=== PATIENT | female | born 1945 | race Caucasian/White ===

== ENCOUNTER → 2016-12-31 | Outpatient (REF) | payer MEDICARE, BC | LOC: M SFHCWAGY 15:37 | PROVIDERS: ATTEND Nurse Practitioner Family | DX: B02.9 Zoster without complications (principal) | CPT/HCPCS: 87254; G0463 ==

== ENCOUNTER → 2017-04-14 | Outpatient (CLI) | payer MEDICARE, BC ==
--- NOTE | 2017-04-14 11:47 | REPMRS ---
Patient History The patient states she had a clinical breast exam in 04/2017. Patient is postmenopausal. Family history of endometrial cancer in mother. Took unspecified hormones for 5 years. Digital Woman Screen Mammo: April 14, 2017 - Exam #: [id number] Bilateral CC and MLO view(s) were taken. Technologist: Karime Macario, Technologist Prior study comparison: April 15, 2016, digital woman screen mammo performed at [facility]. April 13, 2015, digital woman screen mammo performed at [facility]. FINDINGS: There are scattered fibroglandular densities. There has been no change in the appearance of the mammogram from the prior studies. There is a mild amount of residual fibroglandular tissue which is fairly symmetric. There is no interval development of dominant mass, architectural distortion, or clustered microcalcification suggestive of malignancy. ASSESSMENT: BI-RADS/ACR category 1 mammogram. Negative. Recommendation Routine screening mammogram in 1 year (for women over age 40). This mammogram was interpreted with the aid of an FDA-approved computer-aided dectection system. Electronically Signed By: Fausto Sutton MD 04/14/17 [id number]
== END ==
LOC: M WHC 10:05
PROVIDERS: ATTEND Nurse Practitioner Family
DX: Z12.31 Encounter for screening mammogram for malignant neoplasm of breast (principal); Z78.0 Asymptomatic menopausal state
CPT/HCPCS: G0202; G0463

== ENCOUNTER → 2018-06-17 | Outpatient (CLI) | payer MEDICARE, BC | LOC: M WHC 10:58 | DX: Z01.419 Encounter for gynecological examination (general) (routine) without abnormal findings (principal); Z12.31 Encounter for screening mammogram for malignant neoplasm of breast (principal); Z92.29 Personal history of other drug therapy; Z12.12 Encounter for screening for malignant neoplasm of rectum | CPT/HCPCS: 77067 ==

== ENCOUNTER → 2019-06-17 | Outpatient (CLI) | payer MEDICARE, BC ==
--- NOTE | 2019-06-17 13:19 | REPMRS ---
Patient History The patient states she had a clinical breast exam in 06/2019. Family history of endometrial cancer in mother. Took unspecified hormones for 5 years. 3D TOMOSYNTHESIS WAS PERFORMED. [facility] for [facility] 1.9%. Digital Woman Screen Mammo: June 17, 2019 - Exam #: [id number] Bilateral CC and MLO view(s) were taken. Technologist: Soila Cody, Technologist Prior study comparison: June 17, 2018, bilateral digital woman screen mammo performed at [facility]. April 14, 2017, digital woman screen mammo performed at [facility]. FINDINGS: There are scattered fibroglandular densities. There has been no change in the appearance of the mammogram from the prior studies. There is a mild amount of residual fibroglandular tissue which is fairly symmetric. There is no interval development of dominant mass, architectural distortion, or clustered microcalcification suggestive of malignancy. Assessment: BI-RADS/ACR category 1 mammogram. Negative Mammogram. Recommendation Routine screening mammogram in 1 year (for women over age 40). This mammogram was interpreted with the aid of an FDA-approved computer-aided dectection system. Electronically Signed By: Fausto Sutton MD 06/17/19 [id number]
== END ==
LOC: M WHC 10:15
PROVIDERS: ATTEND Nurse Practitioner Family
DX: Z01.419 Encounter for gynecological examination (general) (routine) without abnormal findings (principal); Z12.31 Encounter for screening mammogram for malignant neoplasm of breast; Z80.49 Family history of malignant neoplasm of other genital organs; Z92.29 Personal history of other drug therapy; Z12.12 Encounter for screening for malignant neoplasm of rectum
CPT/HCPCS: 77063; 77067; 82270; G0101

== ENCOUNTER → 2020-06-19 | Outpatient (CLI) | payer MEDICARE, BC ==
--- NOTE | 2020-06-19 14:57 | REPMRS ---
Patient History The patient states she had a clinical breast exam in June 2020. Family history of endometrial cancer in mother. Took unspecified hormones for 5 years. Digital Woman Screen Mammo: June 19, 2020 - Exam #: [id number] Bilateral CC and MLO view(s) were taken. Technologist: Faith Loomis, Technologist Prior study comparison: June 17, 2019, bilateral digital woman screen mammo performed at [facility]. June 17, 2018, bilateral digital woman screen mammo performed at [facility]. April 14, 2017, digital woman screen mammo performed at [facility]. FINDINGS: The breast tissue is almost entirely fat. The Volpara volumetric breast density category is: A. There has been no change in the appearance of the mammogram from the prior studies. There is no interval development of dominant mass, architectural distortion, or grouped microcalcification typical of malignancy. 3-D tomosynthesis shows no additional findings. Assessment: BI-RADS/ACR category 1 mammogram. Negative Mammogram. Recommendation Routine screening mammogram of both breasts in 1 year (for women over age 40). This patient's Lifetime Breast Cancer RIsk is estimated at 1.8 %. This mammogram was interpreted with the aid of an FDA-approved computer-aided dectection system. Electronically Signed By: Jean-Paul Jack MD 06/19/20 [id number]
== END ==
LOC: M WHC 10:20
PROVIDERS: ATTEND Nurse Practitioner Family
DX: Z12.31 Encounter for screening mammogram for malignant neoplasm of breast (principal); Z80.49 Family history of malignant neoplasm of other genital organs; Z92.29 Personal history of other drug therapy

== ENCOUNTER → 2020-12-22 | Outpatient (CLI) | payer MEDICARE, BC ==
--- NOTE | 2020-12-25 08:10 | REP ---
INDICATION: R10-.9 RUQ ABD PAIN. COMPARISON: None. TECHNIQUE/RADIOTRACER AND DOSE: 6.6 mCi of Technetium-99m mebrofenin was injected and sequential anterior images are acquired. 65 minutes after the mebrofenin injection, the patient consumed 8 ounces Ensure and an additional 60 minutes of imaging was acquired. Regions of interest are plotted around the gallbladder. FINDINGS: The initial hepatocellular parenchymal uptake phase is normal and homogeneous. Intra- and extra-hepatic bile ducts are labeled by the 10-minute image. The gallbladder is first labeled on the 25-minute image. There is normal washout from the liver parenchyma into the gallbladder and small intestine on subsequent images. The gallbladder ejection fraction is 89%. Values greater than 35% are considered normal with this technique. IMPRESSION: Normal hepatobiliary scan and normal gallbladder ejection fraction. <Electronically signed by Jean-Paul Jack > 12/25/20 0835
== END ==
LOC: M RAD 12:11
DX: R10.9 Unspecified abdominal pain (principal)
CPT/HCPCS: 78227; A9537

== ENCOUNTER → 2021-06-21 | Outpatient (CLI) | payer MEDICARE, BC ==
--- NOTE | 2021-06-21 12:37 | REPMRS ---
Patient History The patient states she had a clinical breast exam in 2020. Family history of endometrial cancer in mother. Took unspecified hormones for 5 years. Tomosynthesis is performed. Volpara breast density is a. [facility] lifetime risk of breast cancer 1.6%. No breast complaints today Patient signed the MRS sheet 1st vaccine 10/02/20-Pfizer 2nd vaccine 10/23/20-patient doesn't remember which arm for either 3rd vaccine 06/16/21-left arm [employer] on PACS Patient Identification Verified Digital Woman Screen Mammo: June 21, 2021 - Exam #: [id number] Bilateral CC and MLO view(s) were taken. Technologist: Stacey Miller, Technologist Prior study comparison: June 19, 2020, bilateral digital woman screen mammo performed at [facility]. June 17, 2019, bilateral digital woman screen mammo performed at [facility]. FINDINGS: There are scattered fibroglandular densities. There has been no change in the appearance of the mammogram from the prior studies. There is a mild amount of residual fibroglandular tissue which is fairly symmetric. There is no interval development of dominant mass, architectural distortion, or clustered microcalcification suggestive of malignancy. Assessment: BI-RADS/ACR category 1 mammogram. Negative Mammogram. Recommendation Routine screening mammogram in 1 year (for women over age 40). This mammogram was interpreted with the aid of an FDA-approved computer-aided dectection system. Electronically Signed By: Fausto Sutton MD 06/21/21 [id number]
== END ==
LOC: M WHC 09:52
PROVIDERS: ATTEND Nurse Practitioner Women's Health
DX: Z01.419 Encounter for gynecological examination (general) (routine) without abnormal findings (principal); Z12.31 Encounter for screening mammogram for malignant neoplasm of breast; Z80.49 Family history of malignant neoplasm of other genital organs; L29.2 Pruritus vulvae
CPT/HCPCS: 77063; 77067; G0101

== ENCOUNTER → 2021-07-25 | Outpatient (REF) | payer MEDICARE, BC | LOC: M LAB REF 14:20 | PROVIDERS: ATTEND Physician Assistant | DX: L85.9 Epidermal thickening, unspecified (principal) | CPT/HCPCS: 11102; 88305; G0463 ==

== ENCOUNTER → 2021-10-26 | Outpatient (CLI) | payer MEDICARE, BC | LOC: M PLAIMG 11:25 | PROVIDERS: ATTEND Internal Medicine Rheumatology | DX: M25.50 Pain in unspecified joint (principal); R76.8 Other specified abnormal immunological findings in serum; M77.31 Calcaneal spur, right foot; M77.32 Calcaneal spur, left foot; Z87.39 Personal history of other diseases of the musculoskeletal system and connective tissue ==

== ENCOUNTER → 2021-10-26 | Outpatient (REF) | payer MEDICARE, BC ==
[2021-10-26 12:13] LABS: BASO # 0.1 10^3/uL (0.0-0.2); EOS # 0.5 10^3/uL (0.0-0.5); EOS % 5.7 % (0.0-3.0); HEMATOCRIT 40.8 % (36.0-47.0); HEMOGLOBIN 13.2 g/dl (12.0-15.5); LYMPH # 2.2 10^3/uL (1.5-5.0); LYMPH % 27.9 % (24.0-44.0); MEAN CORPUSCULAR HEMOGLOBIN 30.3 pg (27.0-33.0); MEAN CORPUSCULAR HGB CONC 32.4 g/dl (32.0-36.5); MEAN CORPUSCULAR VOLUME 93.6 fl (80.0-96.0); MONO # 0.8 10^3/uL (0.0-0.8); MONO % 10.3 % (2.0-8.0); NEUTROPHILS # 4.4 10^3/uL (1.5-8.5); NEUTROPHILS % 54.6 % (36.0-66.0); PLATELET COUNT, AUTOMATED 187 10^3/uL (150-450); RED BLOOD COUNT 4.36 10^6/uL (4.00-5.40)
[2021-10-26 12:32] LABS: ALBUMIN 3.5 GM/DL (3.2-5.2); ALT/SGPT 34 U/L (12-78); BILIRUBIN,TOTAL 0.5 MG/DL (0.2-1.0); BLOOD UREA NITROGEN 13 MG/DL (7-18); CALCIUM LEVEL 9.8 MG/DL (8.8-10.2); CARBON DIOXIDE LEVEL 26 MEQ/L (21-32); CHLORIDE LEVEL 109 MEQ/L (98-107); CREATININE FOR GFR 0.84 MG/DL (0.55-1.30); GLOMERULAR FILTRATION RATE > 60.0 (>39); GLUCOSE, FASTING 79 MG/DL (70-100); POTASSIUM SERUM 4.4 MEQ/L (3.5-5.1); SODIUM LEVEL 142 MEQ/L (136-145); TOTAL PROTEIN 7.2 GM/DL (6.4-8.2)
[2021-10-26 12:46] LABS: ERYTHROCYTE SEDIMENTATION RATE 30 mm/hr (0-30)
[2021-10-26 13:24] LABS: HEPATITIS B SURFACE ANTIGEN NEGATIVE (NEGATIVE)
[2021-10-26 13:53] LABS: HEPATITIS C VIRUS ABY INDEX 0.1 INDEX (<0.8)
== END ==
LOC: M SFHCRHEU 10:40
PROVIDERS: ATTEND Internal Medicine Rheumatology
DX: M25.50 Pain in unspecified joint (principal); R76.8 Other specified abnormal immunological findings in serum; Z87.39 Personal history of other diseases of the musculoskeletal system and connective tissue

== ENCOUNTER → 2022-08-19 | Outpatient (CLI) | payer MEDICARE, BC | LOC: M WHC 08:48 | PROVIDERS: ATTEND Nurse Practitioner Family | DX: Z12.31 Encounter for screening mammogram for malignant neoplasm of breast (principal) ==

== ENCOUNTER → 2022-09-16 | Outpatient (CLI) | payer MEDICARE, BC | LOC: M PLARAD 13:55 | PROVIDERS: ATTEND Internal Medicine Pulmonary Disease | DX: R91.1 Solitary pulmonary nodule (principal) | CPT/HCPCS: 78815; A9552 ==

== ENCOUNTER → 2022-10-17 | Outpatient (CLI) | payer MEDICARE, BC ==
[~2022-10-17] MED LIST: ALBU8.5H INH; CARV3.12 PO; CO-E200C PO; D3 S1CAP PO; HOME MED LIST COMPLETE! XX SCH; KP F1200 PO; LEVO88TA3 PO; LIDOCAINE 1% MDV 20ML VIAL As Ordered ONE; LOSA25TA13 PO; LOSA50TA28 PO; vitamin D3 PO
[2022-10-17 11:45] VITALS: BP 156/78
== END ==
LOC: M IRPRO 08:23
PROVIDERS: ATTEND Internal Medicine Pulmonary Disease
DX: C34.11 Malignant neoplasm of upper lobe, right bronchus or lung (principal)

== ENCOUNTER → 2022-10-31 | Outpatient (CLI) | payer MEDICARE, BC ==
[~2022-10-31] MED LIST changes: -HOME MED LIST COMPLETE! XX SCH; -LIDOCAINE 1% MDV 20ML VIAL As Ordered ONE
== END ==
LOC: M ONCR 12:42
PROVIDERS: ATTEND Specialist
DX: C34.11 Malignant neoplasm of upper lobe, right bronchus or lung (principal); E03.9 Hypothyroidism, unspecified; I10 Essential (primary) hypertension; J43.9 Emphysema, unspecified; K57.90 Diverticulosis of intestine, part unspecified, without perforation or abscess without bleeding; M06.9 Rheumatoid arthritis, unspecified; Z79.52 Long term (current) use of systemic steroids; Z79.890 Hormone replacement therapy; Z79.899 Other long term (current) drug therapy; Z80.49 Family history of malignant neoplasm of other genital organs; Z80.6 Family history of leukemia; Z87.891 Personal history of nicotine dependence; Z88.8 Allergy status to other drugs, medicaments and biological substances; Z90.710 Acquired absence of both cervix and uterus; Z90.79 Acquired absence of other genital organ(s)

== ENCOUNTER 2022-11-29 08:54 | Outpatient (RCR) | payer MEDICARE, BC | END 2022-12-06 | LOC: M ONCR 08:54 | PROVIDERS: ATTEND General Practice | DX: C34.91 Malignant neoplasm of unspecified part of right bronchus or lung (principal) ==

== ENCOUNTER → 2023-03-04 | Outpatient (CLI) | payer MEDICARE, BC | LOC: M ONCR 09:51 | PROVIDERS: ATTEND General Practice | DX: C34.11 Malignant neoplasm of upper lobe, right bronchus or lung (principal); R20.8 Other disturbances of skin sensation; Z71.2 Person consulting for explanation of examination or test findings; Z87.891 Personal history of nicotine dependence; Z79.890 Hormone replacement therapy; Z79.899 Other long term (current) drug therapy; Z88.8 Allergy status to other drugs, medicaments and biological substances; Z92.3 Personal history of irradiation ==

== ENCOUNTER → 2023-08-13 | Outpatient (CLI) | payer MEDICARE, BC | LOC: M ONCR 14:40 | PROVIDERS: ATTEND General Practice | DX: C34.11 Malignant neoplasm of upper lobe, right bronchus or lung (principal); M79.18 Myalgia, other site; J70.1 Chronic and other pulmonary manifestations due to radiation; W88.8XXA Exposure to other ionizing radiation, initial encounter; Z71.2 Person consulting for explanation of examination or test findings; Z79.890 Hormone replacement therapy; Z79.899 Other long term (current) drug therapy; Z87.891 Personal history of nicotine dependence; Z88.8 Allergy status to other drugs, medicaments and biological substances; Z92.3 Personal history of irradiation ==

== ENCOUNTER → 2023-11-18 | Outpatient (CLI) | payer MEDICARE, BC ==
[~2023-11-18] MED LIST changes: +DEXA4TA PO; +DULO1CAP6 PO
== END ==
LOC: M ONCR 10:47
PROVIDERS: ATTEND General Practice
DX: Z08 Encounter for follow-up examination after completed treatment for malignant neoplasm (principal); Z85.118 Personal history of other malignant neoplasm of bronchus and lung; G62.82 Radiation-induced polyneuropathy; W88.8XXA Exposure to other ionizing radiation, initial encounter; R07.82 Intercostal pain; Z71.2 Person consulting for explanation of examination or test findings; Z79.890 Hormone replacement therapy; Z79.899 Other long term (current) drug therapy; Z87.891 Personal history of nicotine dependence; Z88.8 Allergy status to other drugs, medicaments and biological substances; Z92.3 Personal history of irradiation

== ENCOUNTER → 2024-04-02 | Outpatient (CLI) | payer MEDICARE, BC | LOC: M WHC 13:29 | PROVIDERS: ATTEND Physician Assistant Medical | DX: Z12.31 Encounter for screening mammogram for malignant neoplasm of breast (principal) ==

== ENCOUNTER → 2024-05-25 | Outpatient (CLI) | payer MEDICARE, BC | LOC: M ONCR 10:33 | PROVIDERS: ATTEND General Practice | DX: C34.11 Malignant neoplasm of upper lobe, right bronchus or lung (principal); Z79.899 Other long term (current) drug therapy; Z87.891 Personal history of nicotine dependence; Z88.8 Allergy status to other drugs, medicaments and biological substances; Z92.3 Personal history of irradiation ==

== ENCOUNTER 2024-09-27 07:12 | Day surgery (SDC) | payer MEDICARE, BC ==
[~2024-09-27] VITALS: Ht 154.9 cm; Wt 76.7 kg
[~2024-09-27 07:12] MED LIST changes: +CO Q200C10 PO; +ROSU5TAB49 PO; +SYNT75TA PO; +VITA100093 PO
[2024-09-27] MEDS ORDERED: LR 1,000 ML IV SCH (07:55)
[2024-09-27] MEDS ORDERED: fentaNYL 100 MCG/2 ML INJECTION As Ordered ONE (08:48)
[2024-09-27] MEDS ORDERED: MIDAZOLAM INJ 2MG/2ML VIAL As Ordered ONE (08:48)
[2024-09-27] MEDS ORDERED: propofoL 200 MG/20 ML VIAL As Ordered ONE (08:48)
[2024-09-27] MEDS ORDERED: LIDOCAINE 2% 100MG/5ML SDV (FOR ANES.) As Ordered ONE (08:49)
[2024-09-27] MEDS ORDERED: ACETAMINOPHEN 1000MG/100ML IV BAG As Ordered ONE (08:49)
[2024-09-27] MEDS ORDERED: ONDANSETRON 4MG 2ML VIAL As Ordered ONE (08:49)
[2024-09-27] MEDS ORDERED: ePHEDrine SULFATE 25 MG/5 ML(5MG/ML) SYRINGE As Ordered ONE (09:00)
[2024-09-27] MEDS: ceFAZolin SOD 2 GM in IV 1 EA IV ONE (10:30)
[2024-09-27] MEDS: ISOVUE-300 61% 100ML VIAL As Ordered ONE (11:00)
[2024-09-27] MEDS ORDERED: fentaNYL 100 MCG/2 ML INJECTION IV PRN (11:05)
[2024-09-27] MEDS ORDERED: oxyCODONE 5MG TAB PO PRN (11:05)
[2024-09-27] MEDS ORDERED: ONDANSETRON 4MG 2ML VIAL IV PRN (11:05)
[2024-09-27] MEDS ORDERED: MACR100C43 PO (11:12)
[2024-09-27] MEDS ORDERED: PYRI1TAB5 PO (11:12)
[2024-09-27 12:15] VITALS: BP 175/76; TEMP 96.9; O2SAT 98
== END 2024-09-27 12:42 | disposition home or self-care (01) ==
LOC: M SDC 07:12
PROVIDERS: ATTEND Urology
DX: N13.30 Unspecified hydronephrosis (principal); I11.0 Hypertensive heart disease with heart failure; I25.10 Atherosclerotic heart disease of native coronary artery without angina pectoris; I50.9 Heart failure, unspecified; R00.1 Bradycardia, unspecified; I44.7 Left bundle-branch block, unspecified; E03.9 Hypothyroidism, unspecified; E78.00 Pure hypercholesterolemia, unspecified; J44.9 Chronic obstructive pulmonary disease, unspecified; Z79.899 Other long term (current) drug therapy; I25.2 Old myocardial infarction; Z79.890 Hormone replacement therapy; Z85.118 Personal history of other malignant neoplasm of bronchus and lung; Z92.3 Personal history of irradiation; Z87.891 Personal history of nicotine dependence; Z90.710 Acquired absence of both cervix and uterus; Z90.722 Acquired absence of ovaries, bilateral; Z90.49 Acquired absence of other specified parts of digestive tract; Z88.8 Allergy status to other drugs, medicaments and biological substances; Z87.19 Personal history of other diseases of the digestive system
CPT/HCPCS: 52351; 76000; C1769; J0131; J0690; J1100; J2250; J2405; J3010; Q9967

== ENCOUNTER → 2024-11-23 | Outpatient (CLI) | payer MEDICARE, BC ==
[~2024-11-23] MED LIST changes: +MACR100C43 PO; +PYRI1TAB5 PO
== END ==
LOC: M ONCR 10:35
PROVIDERS: ATTEND General Practice
DX: Z08 Encounter for follow-up examination after completed treatment for malignant neoplasm (principal); Z85.118 Personal history of other malignant neoplasm of bronchus and lung; R10.30 Lower abdominal pain, unspecified; N13.30 Unspecified hydronephrosis; Z92.23 Personal history of estrogen therapy; Z87.891 Personal history of nicotine dependence; Z88.8 Allergy status to other drugs, medicaments and biological substances; Z79.890 Hormone replacement therapy; Z79.899 Other long term (current) drug therapy

== ENCOUNTER → 2025-05-19 | Outpatient (CLI) | payer MEDICARE, BC ==
[~2025-05-19] MED LIST changes: +BUDE10.7; +FUROSEMIDE 20 MG/2 ML VIAL As Ordered ONE; +NITR100C2 PO
== END ==
LOC: M RAD 12:31
PROVIDERS: ATTEND Urology
DX: N13.30 Unspecified hydronephrosis (principal); R93.421 Abnormal radiologic findings on diagnostic imaging of right kidney; R93.422 Abnormal radiologic findings on diagnostic imaging of left kidney
CPT/HCPCS: 78708; A9562

== ENCOUNTER → 2025-05-26 | Outpatient (CLI) | payer MEDICARE, BC ==
[~2025-05-26] MED LIST changes: -FUROSEMIDE 20 MG/2 ML VIAL As Ordered ONE
== END ==
LOC: M ONCR 10:50
PROVIDERS: ATTEND General Practice
DX: Z08 Encounter for follow-up examination after completed treatment for malignant neoplasm (principal); Z85.118 Personal history of other malignant neoplasm of bronchus and lung; Z87.891 Personal history of nicotine dependence; Z92.3 Personal history of irradiation; Z88.8 Allergy status to other drugs, medicaments and biological substances; Z79.51 Long term (current) use of inhaled steroids; Z79.899 Other long term (current) drug therapy